=== PATIENT | female | born 1965 | race Caucasian/White ===

== ENCOUNTER 2023-02-20 14:03 | Observation (INO) | payer OTHER, MEDICAID, SELFPAY ==
[2023-02-20] VITALS (19 sets, daily range): BP systolic 118–138; BP diastolic 74–92; PULSE 69–88; RESP 12–27; TEMP 36.8–36.9; O2SAT 93–100; BMI 24.3
--- NOTE | 2023-02-20 14:21 | DI.RAD.S_ITS ---
PROCEDURE: XR CHEST 1V INDICATIONS: Shortness of breath TECHNIQUE: One view of the chest was acquired. COMPARISON: None. FINDINGS: Surgical changes and devices: None. Lungs and pleura: Questionable slight asymmetric hazy opacity in the right base. Mediastinum: Mediastinal contours appear normal. Heart size is normal. Bones and chest wall: No suspicious bony lesions. Overlying soft tissues appear unremarkable. IMPRESSION: Questionable asymmetric hazy right basilar opacity. This could represent dependent change, focal edema or potentially developing airspace disease such as atelectasis versus pneumonia. Dictated by: Lilian Zavala M.D. on 02/20/2023 at 15:27 Approved by: Lilian Zavala M.D. on 02/20/2023 at 15:28
[2023-02-20 14:48] LABS: Add Manual Diff / Slide Review NO; Basophils Absolute Auto 100 /uL (0-100); Basophils Percent Auto 0.7 % (0-2); Eosinophils Absolute Auto 300 /uL (0-450); Eosinophils Percent Auto 2.8 % (2-4); Hematocrit 40.3 % (36-46); Hemoglobin 13.9 g/dL (12.0-16.0); Lymphocytes Absolute Auto 1400 /uL (1100-4500); Mean Corpuscular HGB Conc 34.4 % (30-36); Mean Corpuscular Hemoglobin 29.9 PG (26-34); Mean Corpuscular Volume 86.8 fL (80-100); Monocytes Absolute Auto 900 /uL (0-900); Monocytes Percent Auto 8.8 % (3-14); Neutrophils Absolute Auto 7600 /uL (1500-7000); Neutrophils Percent Auto 73.7 % (50-75); Platelet Count 361 X10^3/uL (150-400); Red Blood Cell Count 4.64 X10^6/uL (4.0-5.2); Red Cell Distribution Width 12.6 % (11.6-14.8); White Blood Cell Count 10.3 X10^3/uL (4.5-11.0)
[2023-02-20 14:51] LABS: INR 1.2 (0.9-1.3); Prothrombin Time 13.4 SECONDS (10.1-12.7)
[2023-02-20 14:55] LABS: COVID19 -Nasal RAPID Negative (Negative); Lactate (Lactic Acid) 0.9 mmol/L (0.7-2.1)
[2023-02-20 14:56] LABS: Alanine Aminotransferase 36 IU/L (<35); Albumin 3.9 g/dL (3.5-5.0); Alkaline Phosphatase 94 U/L (38-126); Aspartate Aminotransferase 35 IU/L (14-36); BUN Creatinine Ratio 27.8 (6-22); Bilirubin Total 0.3 mg/dL (0.2-1.3); Blood Urea Nitrogen 15 mg/dL (7-17); Calcium 9.2 mg/dL (8.4-10.2); Carbon Dioxide 30 mmol/L (22-32); Chloride 101 mmol/L (98-107); Estimated Glomerular Filt Rate > 60 mL/min (>60); Globulin 3.9 g/dL (1.7-4.1); Glucose 95 mg/dL (80-110); HEMOLYSIS < 15 (0-50); Potassium 4.1 mmol/L (3.4-5.1); Sodium 137 mmol/L (137-145); Total Protein 7.8 g/dL (6.3-8.2)
--- NOTE | 2023-02-20 14:57 | PC.NURSE ---
Pt reports recent meth use via smoking. Has taken in the last week but not the last two days.
[2023-02-20 15:08] LABS: NT-proBNP (BNP-Adult 18+) 101 pg/mL (<125); Troponin I < 0.012 ng/mL (0.01-0.034)
--- NOTE | 2023-02-20 15:36 | ED.GENADULT ---
HPI - General Adult General Chief complaint: Upper Respiratory Symptoms Stated complaint: Sick, No bowel movement in a while Time Seen by Provider: 02/20/23 14:45 Source: patient Mode of arrival: Ambulatory History of Present Illness HPI narrative: 58-year-old female former smoker and daily smoker of methamphetamines presents with family in the chief complaint of ongoing if not worsening upper respiratory symptoms over the past 2 weeks or so. She complains of fever, chills and fatigue as well as cough and generally feeling unwell. She denies any headache or blurred vision nor any runny nose, sore throat nor nausea or vomiting. She had been seen and evaluated at a local urgent care and started on doxycycline about 1 week ago and presents today stating that despite taking antibiotics she is worse. She denies any recent travel, history of blood clots or known cancer. She denies exposure to other ill persons or any history of the same. Related Data Allergies Allergy/AdvReac Type Severity Reaction Status Date / Time sulfamethoxazole Allergy Rash Verified 02/20/23 14:20 [From Bactrim] trimethoprim [From Bactrim] Allergy Rash Verified 02/20/23 14:20 Review of Systems Review of Systems Narrative: GENERAL: See HPI HEENT: See HPI RESPIRATORY: See HPI CARDIOVASCULAR: Denies chest pain, palpitations, orthopnea, edema, GASTROINTESTINAL: Denies nausea, vomiting, abdominal pain, diarrhea, constipation, melena. : Denies dysuria, frequency, incontinence, hematuria, urinary retention. MUSCULOSKELETAL: denies weakness, joint pain, or bony pain SKIN: Denies rash, skin lesions, or other NEUROLOGIC: Denies weakness, headache, numbness, change in speech, confusion, seizures, incoordination. PSYCHIATRIC: No concerning psychosocial issues. 12 point review of systems is negative except for those stated above Patient History Social History Smoking Status: Current every day smoker Smoking Status: Current every day smoker tobacco type: cigarettes alcohol intake frequency: 0-2 drinks per day Substance Use Type: does not use Exam Narrative Exam Narrative: GENERAL: [58] year old patient appears stated age. Well-developed patient, in mild distress. Clearly feeling unwell, frequent dry cough HEAD: Atraumatic. Normocephalic. EYES: Pupils equal round and reactive. Extraocular motions intact. No scleral icterus. No injection or drainage. ENT: Nose without bleeding, purulent drainage. Throat without erythema, tonsillar hypertrophy or exudate. Airway patent. NECK: Trachea midline. Non tender CARDIOVASCULAR: Regular rate and rhythm without murmurs, gallops, or rubs. RESPIRATORY: Harsh sounding cough, decreased breath sounds bilaterally with prolonged expiratory phase, faint crackles in bilateral bases GASTROINTESTINAL: Abdomen soft, non-tender, nondistended. EXTREMITIES: No edema or joint tenderness. BACK: Nontender without deformity or crepitance. No flank tenderness. NEURO: AOx3. SKIN: No rash or erythema of visible areas Initial Vital Signs Initial Vital Signs: Vital Signs Temperature 98.4 F 02/20/23 14:12 Respiratory Rate 18 02/20/23 14:12 Blood Pressure 126/92 H 02/20/23 14:12 Pulse Oximetry 98 02/20/23 14:12 Oxygen Delivery Method Room Air 02/20/23 14:12 Course Orders Ordered: ED Orders 02/20/23 14:21 XR chest 1V Stat EKG-12 Lead Stat Measure peak expiratory flow ONCE RT Consult Eval and Treat NOW 02/20/23 14:30 COVID19 -Nasal RAPID Stat Complete Blood Count AUTO DIFF Stat Comprehensive Metabolic Panel Stat Lactate (Lactic Acid) Stat NT-proBNP (BNP-Adult 18+) Stat Prothrombin Time INR Stat Troponin I Stat 02/20/23 15:37 CT chest abd pel w con Stat 02/20/23 18:30 Sputum Culture Stat 02/20/23 19:20 Blood Culture Stat Discontinued Medications Cefepime HCl 2 gm/ Sodium (Chloride) 100 mls @ 200 mls/hr IV NOW ONE Stop: 02/20/23 18:53 Last Infusion: 02/20/23 20:24 Dose: 0 mls/hr Documented By: COUNTS INCLUDE 234 BEDS AT [facility] Admin: 02/20/23 19:31 Dose: 200 mls/hr Documented By: AMU Vancomycin HCl (Vancomycin) 1,250 mg in 250 mls @ 250 mls/hr IV NOW ONE Stop: 02/20/23 19:51 Last Infusion: 02/20/23 20:43 Dose: 0 mls/hr Documented By: Admin: 02/20/23 19:31 Dose: 250 mls/hr Documented By: TAMYU Azithromycin 500 mg/ Dextrose 250 mls @ 250 mls/hr IV NOW ONE Stop: 02/20/23 18:53 Last Admin: 02/20/23 20:21 Dose: 250 mls/hr Documented By: COUNTS INCLUDE 234 BEDS AT THE [facility] Ketorolac Tromethamine (Ketorolac 30 Mg/Ml Vial) 15 mg IV NOW ONE Stop: 02/20/23 19:27 Last Admin: 02/20/23 19:31 Dose: 15 mg Documented By: AMU Consultations Consultation #1: Initially discussed with Dr. Brady hospitalist and we sure the opinion that discussion with infectious disease is appropriate given atypical presentation on imaging and failed outpatient Consultation #2: Discussed with ID (Sari) at [facility]. After lengthy discussion of patient's history and physical exam, imaging and risk factors he recommends patient be admitted, cultured, sputum cultures, fungal cultures, broad-spectrum and atypical antibiotic coverage, but appropriate for our facility and no indication for transfer at this point Vital Signs Vital signs: Vital Signs - 8 hr 02/20/23 14:12 02/20/23 14:57 02/20/23 15:00 Temperature 98.4 F Pulse Rate 75 77 Respiratory Rate 18 20 12 Blood Pressure 126/92 H 128/78 121/82 Pulse Oximetry 98 100 98 Oxygen Delivery Method Room Air Room Air Room Air 02/20/23 15:30 02/20/23 16:00 02/20/23 16:30 Temperature Pulse Rate 71 71 71 Respiratory Rate 18 19 16 Blood Pressure 123/74 126/80 132/81 Pulse Oximetry 100 98 98 Oxygen Delivery Method Room Air Room Air Room Air 02/20/23 18:27 02/20/23 18:30 02/20/23 19:00 Temperature Pulse Rate 76 75 78 Respiratory Rate 20 18 16 Blood Pressure 138/77 129/79 118/82 Pulse Oximetry 94 95 95 Oxygen Delivery Method Room Air Room Air Room Air 02/20/23 19:25 Temperature 98.3 F Pulse Rate Respiratory Rate Blood Pressure Pulse Oximetry Oxygen Delivery Method Medical Decision Making Lab Data 02/20/23 14:30 02/20/23 14:30 Labs: Lab Results 02/20/23 02/20/23 02/20/23 Range/Units 14:30 14:30 14:30 WBC 10.3 (4.5-11.0) X10^3/uL RBC 4.64 (4.0-5.2) X10^6/uL Hgb 13.9 (12.0-16.0) g/dL Hct 40.3 (36-46) % MCV 86.8 (80-100) fL MCH 29.9 (26-34) PG MCHC 34.4 (30-36) % RDW 12.6 (11.6-14.8) % Plt Count 361 (150-400) X10^3/uL Neut % (Auto) 73.7 (50-75) % Lymph % (Auto) 14.0 L (25-40) % [place] % (Auto) 8.8 (3-14) % Eos % (Auto) 2.8 (2-4) % Baso % (Auto) 0.7 (0-2) % Neut # (Auto) 7600 H (2191-1033) /uL Lymph # (Auto) 1400 (8513-5433) /uL [place] # (Auto) 900 (0-900) /uL Eos # (Auto) 300 (0-450) /uL Baso # (Auto) 100 (0-100) /uL PT 13.4 H (10.1-12.7) SECONDS INR 1.2 (0.9-1.3) Sodium 137 (137-145) mmol/L Potassium 4.1 (3.4-5.1) mmol/L Chloride 101 (98-107) mmol/L Carbon Dioxide 30 (22-32) mmol/L BUN 15 (7-17) mg/dL Creatinine 0.54 (0.52-1.04) mg/dL Estimated GFR > 60 (>60) mL/min BUN/Creatinine Ratio 27.8 H (6-22) Glucose 95 (80-110) mg/dL Lactate (0.7-2.1) mmol/L Calcium 9.2 (8.4-10.2) mg/dL Total Bilirubin 0.3 (0.2-1.3) mg/dL AST 35 (14-36) IU/L ALT 36 H (<35) IU/L Alkaline Phosphatase 94 (38-126) U/L Troponin I < 0.012 (0.01-0.034) ng/mL NT-Pro-B Natriuret Pep 101 (<125) pg/mL Total Protein 7.8 (6.3-8.2) g/dL Albumin 3.9 (3.5-5.0) g/dL Globulin 3.9 (1.7-4.1) g/dL Albumin/Globulin Ratio 1.0 (1.0-2.8) SARS-CoV-2 (PCR) (Negative) 02/20/23 02/20/23 Range/Units 14:30 14:30 WBC (4.5-11.0) X10^3/uL RBC (4.0-5.2) X10^6/uL Hgb (12.0-16.0) g/dL Hct (36-46) % MCV (80-100) fL MCH (26-34) PG MCHC (30-36) % RDW (11.6-14.8) % Plt Count (150-400) X10^3/uL Neut % (Auto) (50-75) % Lymph % (Auto) (25-40) % [place] % (Auto) (3-14) % Eos % (Auto) (2-4) % Baso % (Auto) (0-2) % Neut # (Auto) (7675-2556) /uL Lymph # (Auto) (3281-2333) /uL [place] # (Auto) (0-900) /uL Eos # (Auto) (0-450) /uL Baso # (Auto) (0-100) /uL PT (10.1-12.7) SECONDS INR (0.9-1.3) Sodium (137-145) mmol/L Potassium (3.4-5.1) mmol/L Chloride (98-107) mmol/L Carbon Dioxide (22-32) mmol/L BUN (7-17) mg/dL Creatinine (0.52-1.04) mg/dL Estimated GFR (>60) mL/min BUN/Creatinine Ratio (6-22) Glucose (80-110) mg/dL Lactate 0.9 (0.7-2.1) mmol/L Calcium (8.4-10.2) mg/dL Total Bilirubin (0.2-1.3) mg/dL AST (14-36) IU/L ALT (<35) IU/L Alkaline Phosphatase (38-126) U/L Troponin I (0.01-0.034) ng/mL NT-Pro-B Natriuret Pep (<125) pg/mL Total Protein (6.3-8.2) g/dL Albumin (3.5-5.0) g/dL Globulin (1.7-4.1) g/dL Albumin/Globulin Ratio (1.0-2.8) SARS-CoV-2 (PCR) Negative (Negative) Critical Care Time Critical Care Time Critical Care Time: Yes Total Critical Care Time: 35 Attestation: The high probability of a clinically significant, sudden or life threatening deterioration of the [Resp] system(s) required my full and direct attention, intervention and personal management. The aggregate critical care time was [35] minutes. This time is in addition to time spent performing reported procedures but includes the following: [x] Data Review and interpretation [x] Patient assessment and monitoring of vital signs [x] Documentation [x] Medication orders and management Discharge Plan Departure Patient Disposition: Admitted as Observation Clinical Impression: Pneumonia
--- NOTE | 2023-02-20 15:37 | DI.CT.S_ITS ---
PROCEDURE: CT CHEST ABD PEL W CON INDICATIONS: pneumonia worsening, abdominal pain, change in BMs TECHNIQUE: After the administration of intravenous contrast, axial sections acquired from the supraclavicular neck to the pubic symphysis. Coronal and sagittal reformats were performed. For radiation dose reduction, the following was used: automated exposure control, adjustment of mA and/or kV according to patient size. COMPARISON: [facility], CT, CT KUB, 06/13/2021, 22:11. FINDINGS: Image quality: Excellent. CHEST: Lower Neck: No enlarged lymph nodes. Thyroid: Within normal limits. Axillae: No enlarged lymph nodes. Chest Wall: Unremarkable. Lungs and Airways: There are scattered clusters of nodular opacities identified within the lungs most notable in the bases as well as right upper lobe. Heart: Heart size is normal. No pericardial effusion. Thoracic Vessels: The aorta and pulmonary arteries demonstrate normal size. Mediastinum and Becky: No enlarged lymph nodes. Esophagus: No wall thickening. No hiatal hernia. ABDOMEN: Liver: Mild steatosis. Gallbladder: Unremarkable. Biliary ducts: Unremarkable. Pancreas: Unremarkable. Spleen: Unremarkable. Adrenal Glands: Unremarkable. Kidneys and Ureters: 3 mm nonobstructing left renal calculus. Stomach and Bowel: Stomach, small bowel loops, and colon are unremarkable. Appendix is normal. Mild scattered stool. Diverticular present without inflammatory change. Peritoneum: No abnormal intraperitoneal fluid. No free air. Ventral Wall: Trace fat containing ventral hernia. Abdominal Nodes: No retroperitoneal or mesenteric adenopathy by size criteria. Vessels: Aorta and inferior vena cava are normal in size. PELVIS: Pelvic Organs: Unremarkable. Bladder: Unremarkable. Pelvic Nodes: No enlarged lymph nodes. Miscellaneous: No inguinal hernias are seen. Bones: Sclerosis is present the posterior left acetabulum unchanged and likely bone island. IMPRESSION: 1. Bilateral nodular opacities within the lungs most suggestive of infection or inflammation. Recommend correlation to potential etiology such as fungal or mycobacterial. Follow-up imaging is recommended after appropriate therapy to document resolution. 2. Diverticulosis. 3. Nonobstructing left renal calculus. Dictated by: Lilian Zavala M.D. on 02/20/2023 at 16:03 Approved by: Lilian Zavala M.D. on 02/20/2023 at 16:06
[2023-02-20] MEDS: CEFEPIME 2 GM in SODIUM CHLORIDE 0.9% 100 ML IV (19:31)
[2023-02-20] MEDS: KETOROLAC 30 MG/ML VIAL 15 MG IV (19:31)
[2023-02-20] MEDS: VANCOMYCIN 1,250 MG/250 ML PIGGYBACK 250 MG IV (19:31)
[2023-02-20] MEDS: AZITHROMYCIN 500 MG in DEXTROSE 5% IN WATER 250 ML 250 MG IV (20:21)
--- NOTE | 2023-02-20 22:05 | P.HP_ITS ---
History of Present Illness History of Present Illness Date Patient Seen: 02/20/23 Time Patient Seen: 21:00 Chief complaint: Sick, No bowel movement in a while Narrative: Ms. Gonzalez is a 58W smokes cigarettes and meth daily who prseents to the hospital feeling ill for the last two weeks. She has subjective fevers, chills, cough, and malaise. She has some phlegm production. She has no chest pain. No sick contacts. She was prescribed doxycycline two days for a pneumonia and has taken she thinks four total doses. She does not feel better. She has continued to smoke tobacco and meth. In the ED workup was done, vitals notable for afebrile, respiratory rate teens, blood pressure 120s/90s, sats 98% on room air. Labs reviewed by me and notable for WBC 10.3, hgb 13.9, plts 361. Na 137, k 4.1, creatinine 0.54. Trop negative. COVID negative. Chest xray reviewed by me and notable for right opacity. CT chest reviewed by me and notable for bilateral lung opacities. She was ordered for antibiotics and admitted for further treatment. [facility] Social History Smoking Status: Current every day smoker Meds Home Medications and Allergies Allergies Allergy/AdvReac Type Severity Reaction Status Date / Time sulfamethoxazole Allergy Rash Verified 02/20/23 14:20 [From Bactrim] trimethoprim [From Bactrim] Allergy Rash Verified 02/20/23 14:20 Review of Systems Review of Systems Narrative: 14 systems reviewed and negative aside from what is noted in HPI Exam Vital Signs (past 8 hours): - 02/20/23 14:12 02/20/23 14:57 02/20/23 15:00 Temperature 98.4 F Pulse Rate 75 77 Respiratory Rate 18 20 12 Blood Pressure 126/92 H 128/78 121/82 Pulse Oximetry 98 100 98 Oxygen Delivery Method Room Air Room Air Room Air 02/20/23 15:30 02/20/23 16:00 02/20/23 16:30 Temperature Pulse Rate 71 71 71 Respiratory Rate 18 19 16 Blood Pressure 123/74 126/80 132/81 Pulse Oximetry 100 98 98 Oxygen Delivery Method Room Air Room Air Room Air 02/20/23 18:27 02/20/23 18:30 02/20/23 19:00 Temperature Pulse Rate 76 75 78 Respiratory Rate 20 18 16 Blood Pressure 138/77 129/79 118/82 Pulse Oximetry 94 95 95 Oxygen Delivery Method Room Air Room Air Room Air 02/20/23 19:25 02/20/23 19:30 02/20/23 19:30 Temperature 98.3 F Pulse Rate 74 Respiratory Rate 16 Blood Pressure 136/85 Pulse Oximetry 96 Oxygen Delivery Method 02/20/23 20:00 02/20/23 20:00 02/20/23 20:30 Temperature Pulse Rate 69 84 Respiratory Rate 20 20 Blood Pressure 135/80 Pulse Oximetry 96 Oxygen Delivery Method 02/20/23 21:00 Temperature Pulse Rate 88 Respiratory Rate Blood Pressure Pulse Oximetry 95 Oxygen Delivery Method Oxygen Delivery Method Room Air Narrative Exam Narrative: GEN: no acute distress HEENT: moist mucous membranes, PERRL NECK: trachea midline, no JVD PULM: clear bilaterally, no wheezes, rhonchi, rales CV: regular rate and rhythm, no murmurs ABD: soft, nontender, nondistended, no organomegaly EXT: warm and well perfused with no edema NEURO: awake, alert, oriented, no focal deficits Objective Labs 02/20/23 14:30 02/20/23 14:30 Labs: Laboratory Results - last 24 hr 02/20/23 02/20/23 02/20/23 14:30 14:30 14:30 WBC 10.3 RBC 4.64 Hgb 13.9 Hct 40.3 MCV 86.8 MCH 29.9 MCHC 34.4 RDW 12.6 Plt Count 361 Neut % (Auto) 73.7 Lymph % (Auto) 14.0 L [place] % (Auto) 8.8 Eos % (Auto) 2.8 Baso % (Auto) 0.7 Neut # (Auto) 7600 H Lymph # (Auto) 1400 [place] # (Auto) 900 Eos # (Auto) 300 Baso # (Auto) 100 PT 13.4 H INR 1.2 Sodium 137 Potassium 4.1 Chloride 101 Carbon Dioxide 30 BUN 15 Creatinine 0.54 Estimated GFR > 60 BUN/Creatinine Ratio 27.8 H Glucose 95 Lactate Calcium 9.2 Total Bilirubin 0.3 AST 35 ALT 36 H Alkaline Phosphatase 94 Troponin I < 0.012 NT-Pro-B Natriuret Pep 101 Total Protein 7.8 Albumin 3.9 Globulin 3.9 Albumin/Globulin Ratio 1.0 SARS-CoV-2 (PCR) 02/20/23 02/20/23 14:30 14:30 WBC RBC Hgb Hct MCV MCH MCHC RDW Plt Count Neut % (Auto) Lymph % (Auto) [place] % (Auto) Eos % (Auto) Baso % (Auto) Neut # (Auto) Lymph # (Auto) [place] # (Auto) Eos # (Auto) Baso # (Auto) PT INR Sodium Potassium Chloride Carbon Dioxide BUN Creatinine Estimated GFR BUN/Creatinine Ratio Glucose Lactate 0.9 Calcium Total Bilirubin AST ALT Alkaline Phosphatase Troponin I NT-Pro-B Natriuret Pep Total Protein Albumin Globulin Albumin/Globulin Ratio SARS-CoV-2 (PCR) Negative Assessment & Plan Assessment & Plan narrative: 1. Cough, possible pneumonia -she has symptoms consistent with pneumonia with cough and subjective fevers -chest xray showed bilateral consolidation -she has been taking doxycycline with no improvement -etiology is possibly bacterial, viral, or fungal pneumonia -however with afebrile, normal wbc, also possibly not infection -check procalcitonin, if negative would have higher suspicion for meth induced lung injury -check sputum culture 2. Active meth smoker -discussed cessation 3. Active tobacco smoker -discussed cessation I have discussed plan and obtained history from patient and family at bedside. I have discussed plan of care with ED physician and bedside nurse. I have reviewed labs, chest xray, CT chest. CODE: Full Proxy: Noelle Gonzalez, daughter Quality [facility] - Meds 'Current medications' to include all prescriptions, [id number] products, herbals, cannabis/cannabidiol products, and vitamin/mineral/dietary (nutritional) supplements. I have utilized all available resources to obtain, update, or review the patient?s current medications. [If Yes, STOP here]: Yes
[2023-02-20 22:42] LABS: Procalcitonin 0.04 ng/mL (<0.5)
--- NOTE | 2023-02-20 22:48 | PC.NURSE ---
Lab has duplicate sputum cx order. Second one cancelled
[2023-02-21] VITALS (29 sets, daily range): BP systolic 108–164; BP diastolic 68–104; PULSE 64–89; RESP 13–23; TEMP 36.7–37; O2SAT 91–99; BMI 24.3
[2023-02-21 06:19] LABS: Add Manual Diff / Slide Review NO; Basophils Absolute Auto 100 /uL (0-100); Basophils Percent Auto 0.9 % (0-2); Eosinophils Absolute Auto 400 /uL (0-450); Eosinophils Percent Auto 5.2 % (2-4); Hematocrit 37.2 % (36-46); Hemoglobin 12.8 g/dL (12.0-16.0); Lymphocytes Absolute Auto 1400 /uL (1100-4500); Lymphocytes Percent Auto 20.3 % (25-40); Mean Corpuscular HGB Conc 34.3 % (30-36); Mean Corpuscular Hemoglobin 29.7 PG (26-34); Mean Corpuscular Volume 86.5 fL (80-100); Monocytes Absolute Auto 600 /uL (0-900); Monocytes Percent Auto 8.7 % (3-14); Neutrophils Absolute Auto 4500 /uL (1500-7000); Neutrophils Percent Auto 64.9 % (50-75); Platelet Count 333 X10^3/uL (150-400); Red Cell Distribution Width 12.6 % (11.6-14.8)
[2023-02-21 06:38] LABS: Blood Urea Nitrogen 16 mg/dL (7-17); Calcium 8.6 mg/dL (8.4-10.2); Carbon Dioxide 28 mmol/L (22-32); Chloride 103 mmol/L (98-107); Estimated Glomerular Filt Rate > 60 mL/min (>60); Glucose 85 mg/dL (80-110); HEMOLYSIS < 15 (0-50); Potassium 3.7 mmol/L (3.4-5.1); Sodium 137 mmol/L (137-145)
[2023-02-21] MEDS: VANCOMYCIN 1,000 MG/200 ML PIGGYBACK 150 MG IV (08:41)
[2023-02-21] MEDS: CEFEPIME 2 GM in SODIUM CHLORIDE 0.9% 100 ML IV (10:24)
[2023-02-21] MEDS: ENOXAPARIN 40 MG/0.4 ML SYRINGE SUBCUT (10:24)
--- NOTE | 2023-02-21 11:57 | PC.NURSE ---
Day shift: In room from ED at approx 1157. Family member (Daughter) in room as well. A&Ox4. Calm and cooperative with care. Oriented to room and call light. VS WNL. RA 99%. Call light in reach. Steady on feet.
--- NOTE | 2023-02-21 14:39 | PC.NURSE ---
Day shift: Paperwork signed and all questions answered. Pt has all personal belongings. scripts sent electronic to Pt's pharmacy. Pt's Daughter in room for teachings. Left unit at approx 1450. Pt wanted to ambulate to the car.
[2023-02-21 17:17] LABS: MRSA (Nasal) PCR Not Detected (Not Detect)
--- NOTE | 2023-02-21 18:12 | P.DS_ITS ---
History of Present Illness History of Present Illness Date Patient Seen: 02/20/23 Time Patient Seen: 21:00 Chief complaint: Sick, No bowel movement in a while Narrative: Ms. Gonzalez is a 58W smokes cigarettes and meth daily who prseents to the hospital feeling ill for the last two weeks. She has subjective fevers, chills, cough, and malaise. She has some phlegm production. She has no chest pain. No sick contacts. She was prescribed doxycycline two days for a pneumonia and has taken she thinks four total doses. She does not feel better. She has continued to smoke tobacco and meth. In the ED workup was done, vitals notable for afebrile, respiratory rate teens, blood pressure 120s/90s, sats 98% on room air. Labs reviewed by me and notable for WBC 10.3, hgb 13.9, plts 361. Na 137, k 4.1, creatinine 0.54. Trop negative. COVID negative. Chest xray reviewed by me and notable for right opacity. CT chest reviewed by me and notable for bilateral lung opacities. She was ordered for antibiotics and admitted for further treatment. Discharge Providers Provider Date of admission: 02/21/23 00:34 Discharge Date: 02/21/23 Discharge provider: Agusto Brady DO Summary Hospital Course Discharge Diagnosis: 1. Cough, possible pneumonia -she has symptoms consistent with pneumonia with cough and subjective fevers -chest xray showed bilateral consolidation -she has been taking doxycycline with no improvement -etiology is possibly bacterial, viral, or fungal pneumonia -however with afebrile, normal wbc, also possibly not infection -check procalcitonin, if negative would have higher suspicion for meth induced lung injury, procal negative -check sputum culture 2. Active meth smoker -discussed cessation 3. Active tobacco smoker -discussed cessation Hospital Course: Admitted for cough and found to have bilateral nodular opacities on CTA chest suspicious for pneumonia. Placed on broad spectrum abx and improved and wanted to go home the next day before sputum and blood cultures resulted as she felt much better. She will be called with the results if they are abnormal. Procal negative suggesting more likely pneumonitis from smoking meth over true pneumonia. Placed on 5 days of po levaquin and will f/u with PCP. Given script per daughter's request for intranasal narcan. Time Spent with Patient Time spent: Greater than 30 minutes Exam Vital Signs (past 8 hours): - 02/21/23 10:30 02/21/23 11:00 02/21/23 11:00 Temperature Pulse Rate 76 74 Respiratory Rate 13 20 Blood Pressure 119/70 Pulse Oximetry 96 95 Oxygen Delivery Method Oxygen Flow Rate 02/21/23 11:30 02/21/23 12:00 02/21/23 12:45 Temperature 98.0 F Pulse Rate 69 72 Respiratory Rate 22 18 Blood Pressure 135/74 Pulse Oximetry 95 97 Oxygen Delivery Method Room Air Oxygen Flow Rate 0 Oxygen Delivery Method Room Air Oxygen Flow Rate 0 Narrative Exam Narrative: GEN: no acute distress HEENT: moist mucous membranes, PERRL NECK: trachea midline, no JVD PULM: clear bilaterally, no wheezes, rhonchi, rales CV: regular rate and rhythm, no murmurs ABD: soft, nontender, nondistended, no organomegaly EXT: warm and well perfused with no edema NEURO: awake, alert, oriented, no focal deficits Objective Labs 02/21/23 06:00 02/21/23 06:00 Labs: Laboratory Results - last 24 hr 02/20/23 02/21/23 02/21/23 19:20 06:00 06:00 WBC 7.0 RBC 4.30 Hgb 12.8 Hct 37.2 MCV 86.5 MCH 29.7 MCHC 34.3 RDW 12.6 Plt Count 333 Neut % (Auto) 64.9 Lymph % (Auto) 20.3 L [place] % (Auto) 8.7 Eos % (Auto) 5.2 H Baso % (Auto) 0.9 Neut # (Auto) 4500 Lymph # (Auto) 1400 [place] # (Auto) 600 Eos # (Auto) 400 Baso # (Auto) 100 Sodium 137 Potassium 3.7 Chloride 103 Carbon Dioxide 28 BUN 16 Creatinine 0.47 L Estimated GFR > 60 BUN/Creatinine Ratio 34.0 H Glucose 85 Calcium 8.6 Procalcitonin 0.04 Nasal Screen MRSA (PCR) 02/21/23 13:55 WBC RBC Hgb Hct MCV MCH MCHC RDW Plt Count Neut % (Auto) Lymph % (Auto) [place] % (Auto) Eos % (Auto) Baso % (Auto) Neut # (Auto) Lymph # (Auto) [place] # (Auto) Eos # (Auto) Baso # (Auto) Sodium Potassium Chloride Carbon Dioxide BUN Creatinine Estimated GFR BUN/Creatinine Ratio Glucose Calcium Procalcitonin Nasal Screen MRSA (PCR) Not detected [facility] Social History Smoking Status: Current every day smoker alcohol intake: current Discharge Plan Discharge Plan Patient Disposition: Home Provider Discharge Comment: You were admitted for a pneumonia. You received IV antibiotics while in the hospital and your breathing improved. You will now need to finish a course of oral antibiotics at home. I've also sent narcan spray to have on hand. Discharge orders & Medications Prescriptions: New levofloxacin 750 mg tablet 750 mg PO DAILY 5 Days Qty: 5 0RF naloxone [Narcan] 4 mg/actuation spray,non-aerosol 4 mg intranasal Q2M PRN (Reason: opioid overdose) Qty: 2 0RF Rx Instructions: spray 1 dose into ONE nostril; alternate nostrils w each dose until help arrives Visit Report/Discharge Packet Instructions: DI for Pneumonia -- Adult, Levofloxacin, Naloxone Nasal [place] Stand Alone Forms: Patient Portal/API, Stroke Signs & Symptoms Discharge Data Attending Provider: Jeb Tirado Admit Date/Time: 02/21/23 00:34 Discharges patient from system. Discharge Date/Time: 02/21/23 14:48 Quality VTE Deep Vein Thrombosis/Pulmonary Embolism Present on Admission: No
== END 2023-02-21 14:48 | disposition home or self-care (01) ==
LOC: ED 21:15 → AC 02-21 00:35
PROVIDERS: Admitting Provider Internal Medicine; Emergency Provider Emergency Medicine; Visit Provider Internal Medicine
DX: R50.9 Fever, unspecified (principal); R05.9 Cough, unspecified; F17.210 Nicotine dependence, cigarettes, uncomplicated; F15.20 Other stimulant dependence, uncomplicated; Z20.822 Contact with and (suspected) exposure to COVID-19
CPT/HCPCS: 36415; 71045; 71260; 74177; 80048; 80053; 83605; 83880; 84145; 84484; 85025; 85610; 87040; 87070; 87205; 87635; 87797; 93005; 93010; 96365; 96366; 96367; 96368; 96372; 96375; 99284; 99285; C9803; G0378; J0692; J1650; J1885; Q9967

== ENCOUNTER → 2024-01-16 15:15 | Outpatient (CLI) | payer OTHER, MEDICAID, SELFPAY ==
[2023-02-21 13:04] VITALS: BMI 24.3
--- NOTE | 2024-01-16 15:52 | DI.RAD.S_ITS ---
PROCEDURE: XR CHEST 2V INDICATIONS: Cough TECHNIQUE: 2 views of the chest were acquired. COMPARISON: [facility], CR, XR CHEST 1V, 02/20/2023, 14:42. FINDINGS: Surgical changes and devices: None. Lungs and pleura: Airspace opacity in right infrahilar region is seen. Left lung is clear. No pleural effusions or pneumothorax. Mediastinum: Mediastinal contours are normal. Heart size is normal. Bones and chest wall: No suspicious bony abnormalities. Soft tissues appear unremarkable. IMPRESSION: Finding is suggestive of developing right lower lobe infiltrate. No pleural effusion or pneumothorax. Dictated by: Kimo Myers M.D. on 01/16/2024 at 17:26 Approved by: Kimo Myers M.D. on 01/16/2024 at 17:26
[2024-01-16 18:43] LABS: COVID-19 CEPHEID 4-PLEX PCR Negative (Negative); Influenza A - CEPHEID Flu A NEGATIVE (NEGATIVE); Influenza B - CEPHEID Flu B NEGATIVE (NEGATIVE); Respiratory Syncytial Virus Negative (Negative)
== END ==
PROVIDERS: Referring Provider Nurse Practitioner Family; Visit Provider Nurse Practitioner Family
DX: R05.9 Cough, unspecified (principal)
CPT/HCPCS: 0241U; 71046

== ENCOUNTER 2024-07-15 18:28 | Emergency (ER) | payer OTHER, MEDICAID, SELFPAY ==
[2023-02-21 13:04] VITALS: BMI 24.3
[2024-07-15 18:37] VITALS: BP 153/90; PULSE 73; RESP 16; TEMP 36.8; O2SAT 97; BMI 22.4
--- NOTE | 2024-07-15 18:48 | EKG_ITS ---
[address] [address] Test Date: 2024-07-15 Pat Name: Aarti Gonzalez Department: [facility] Room: Gender: Female Window Maker: HEAVENLY : 1965 Requested By: Order Number: [id number] Reading MD: Eugene Barnett Measurements Intervals [place] Rate: 74 P: 83 MD: 200 QRS: 24 QRSD: 82 T: 58 QT: 404 QTc: 448 Interpretive Statements Normal sinus rhythm Electronically Signed On 07-15-2024 19:52:48 PDT by Eugene Barnett
--- NOTE | 2024-07-15 18:48 | DI.RAD.S_ITS ---
PROCEDURE: XR CHEST 1V INDICATIONS: chest pain TECHNIQUE: One view of the chest was acquired. COMPARISON: [facility], CR, XR CHEST 2V, 01/16/2024, 15:52. FINDINGS: Surgical changes and devices: None. Lungs and pleura: Lungs are clear. No pleural effusions or pneumothorax. Mediastinum: Mediastinal contours appear normal. Heart size is normal. Bones and chest wall: No suspicious bony lesions. Overlying soft tissues appear unremarkable. IMPRESSION: No acute cardiopulmonary abnormality is seen. Approved by: Federica Rivas M.D.,Ph.D. on 07/15/2024 at 20:21
[2024-07-15 19:19] LABS: Add Manual Diff / Slide Review NO; Basophils Absolute Auto 100 /uL (0-100); Basophils Percent Auto 1.4 % (0-2); Eosinophils Absolute Auto 300 /uL (0-450); Hematocrit 39.9 % (36-46); Hemoglobin 13.4 g/dL (12.0-16.0); Lymphocytes Absolute Auto 1500 /uL (1100-4500); Lymphocytes Percent Auto 22.9 % (25-40); Mean Corpuscular HGB Conc 33.7 % (30-36); Mean Corpuscular Hemoglobin 30.1 PG (26-34); Mean Corpuscular Volume 89.4 fL (80-100); Monocytes Absolute Auto 400 /uL (0-900); Monocytes Percent Auto 6.2 % (3-14); Neutrophils Absolute Auto 4400 /uL (1500-7000); Neutrophils Percent Auto 65.5 % (50-75); Platelet Count 210 X10^3/uL (150-400); Red Blood Cell Count 4.46 X10^6/uL (4.0-5.2); Red Cell Distribution Width 13.2 % (11.6-14.8); White Blood Cell Count 6.7 X10^3/uL (4.5-11.0)
[2024-07-15 19:25] LABS: Prothrombin Time 11.5 SECONDS (9.4-12.5)
[2024-07-15 19:28] LABS: PTT Partial Thromboplastin Tim 36 SECONDS (25.1-36.5)
[2024-07-15 19:29] LABS: Alanine Aminotransferase 19 IU/L (<35); Albumin 4.2 g/dL (3.5-5.0); Albumin Globulin Ratio 1.4 (1.0-2.8); Alkaline Phosphatase 80 U/L (38-126); Aspartate Aminotransferase 27 IU/L (14-36); BUN Creatinine Ratio 24.1 (6-22); Bilirubin Total 0.4 mg/dL (0.2-1.3); Blood Urea Nitrogen 20 mg/dL (7-17); Calcium 9.2 mg/dL (8.4-10.2); Carbon Dioxide 28 mmol/L (22-32); Chloride 104 mmol/L (98-107); Creatine Kinase 131 U/L (30-135); Estimated Glomerular Filt Rate > 60 mL/min (>60); Globulin 3.1 g/dL (1.7-4.1); Glucose 101 mg/dL (80-110); HEMOLYSIS 15 (0-50); Lipase 62 U/L (23-300); Magnesium 1.8 mg/dL (1.6-2.3); Potassium 3.5 mmol/L (3.4-5.1); Sodium 139 mmol/L (137-145); Total Protein 7.3 g/dL (6.3-8.2)
[2024-07-15 19:41] LABS: NT-proBNP (BNP-Adult 18+) 96 pg/mL (<125); Troponin I < 0.012 ng/mL (0.01-0.034)
[2024-07-15 21:07] VITALS: PULSE 73; RESP 20; O2SAT 99
[2024-07-15 21:30] VITALS: BP 145/77; PULSE 75; RESP 19
[2024-07-15 22:00] VITALS: BP 138/76; PULSE 74; RESP 26
[2024-07-15 22:30] VITALS: BP 136/77; PULSE 73; RESP 23; O2SAT 98
[2024-07-15 23:00] VITALS: BP 138/74; PULSE 75; RESP 18
--- NOTE | 2024-07-15 23:12 | ED_ITS ---
HPI - Arrhythmia/Palpitations General Chief Complaint: Arrhythmia/Palpitations Stated Complaint: irregular heartbeat Time Seen by Provider: 07/15/24 21:07 Source: patient Mode of arrival: Ambulatory History of Present Illness HPI narrative: 59-year-old woman presents with palpitations. History of prior methamphetamine use, mild reactive airway disease Noted she was lightheaded on Friday while mowing the lawn found to be hypotensive, 80/60, and home monitor heart rate reported 160. She spoke with her physician today who recommended ER visit she has not currently symptomatic. Related Data Previous Rx's Medication Instructions Recorded naloxone 4 mg/actuation nasal 4 mg intranasal Q2M PRN opioid 02/21/23 spray (Narcan) overdose #2 ea azithromycin 250 mg tablet See Rx Instructions PO .COMPLEX #6 01/16/24 tabs benzonatate 200 mg capsule 200 mg PO BID PRN cough #28 caps 01/16/24 fluticasone propionate 50 1 spray intranasal Q12H #16 grams 01/16/24 mcg/actuation nasal spray,suspension (Flonase Allergy Relief) Allergies Allergy/AdvReac Type Severity Reaction Status Date / Time sulfamethoxazole Allergy Rash Verified 07/15/24 18:46 [From Bactrim] trimethoprim [From Bactrim] Allergy Rash Verified 07/15/24 18:46 Review of Systems Review of Systems Narrative: Pertinent positive and negative findings as per HPI Patient History Social History Smoking Status: Current some day smoker alcohol intake: current Smoking Status: Current some day smoker tobacco type: cigarettes alcohol intake frequency: 0-2 drinks per day Substance Use Type: marijuana and methamphetamine Exam Initial Vital Signs Initial Vital Signs: Vital Signs Temperature 98.3 F 07/15/24 18:37 Pulse Rate 73 07/15/24 18:37 Respiratory Rate 16 07/15/24 18:37 Blood Pressure 153/90 H 07/15/24 18:37 Pulse Oximetry 97 07/15/24 18:37 Oxygen Delivery Method Room Air 07/15/24 18:37 General: Healthy appearing, in no acute distress. Able to give a complete and coherent history. Well-nourished well-developed HEENT: Moist mucous membranes, normal sclera with reactive pupils, Neck: No JVD, supple Respiratory: Lungs are clear to auscultation, no wheezing no rales no rhonchi. Full and symmetrical air movement Cardiac: Regular rate and rhythm no murmurs no bruits Abdomen: Soft, nontender, good bowel tones, no flank pain Skin: Warm and dry, no rashes Neurologic: Grossly neurologically intact with no obvious asymmetries or abnormalities Extremities: No trauma, well perfused Psych: Cooperative, appropriate insight and affect Course Orders Ordered: ED Orders 07/15/24 18:48 XR chest 1V Stat EKG-12 Lead Stat 07/15/24 19:10 Complete Blood Count AUTO DIFF Stat Comprehensive Metabolic Panel Stat Lipase Stat Magnesium Stat NT-proBNP (BNP-Adult 18+) Stat PTT Partial Thromboplastin Chet Stat Prothrombin Time INR Stat Troponin & CK Cardiac Panel Stat Vital Signs Vital signs: Vital Signs - 8 hr 07/15/24 18:37 07/15/24 21:07 07/15/24 21:30 Temperature 98.3 F Pulse Rate 73 73 Respiratory Rate 16 20 Blood Pressure 153/90 H 145/77 H Pulse Oximetry 97 99 Oxygen Delivery Method Room Air 07/15/24 21:30 07/15/24 22:00 07/15/24 22:00 Temperature Pulse Rate 75 74 Respiratory Rate 19 26 H Blood Pressure 138/76 Pulse Oximetry Oxygen Delivery Method 07/15/24 22:30 07/15/24 22:30 Temperature Pulse Rate 73 Respiratory Rate 23 Blood Pressure 136/77 Pulse Oximetry 98 Oxygen Delivery Method Room Air MDM - Arrhythmia/Palpitations Lab Data 07/15/24 19:10 07/15/24 19:10 Labs: Lab Results 07/15/24 Range/Units 19:10 WBC 6.7 (4.5-11.0) X10^3/uL RBC 4.46 (4.0-5.2) X10^6/uL Hgb 13.4 (12.0-16.0) g/dL Hct 39.9 (36-46) % MCV 89.4 (80-100) fL MCH 30.1 (26-34) PG MCHC 33.7 (30-36) % RDW 13.2 (11.6-14.8) % Plt Count 210 (150-400) X10^3/uL Neut % (Auto) 65.5 (50-75) % Lymph % (Auto) 22.9 L (25-40) % [place] % (Auto) 6.2 (3-14) % Eos % (Auto) 4.0 (2-4) % Baso % (Auto) 1.4 (0-2) % Neut # (Auto) 4400 (5414-2891) /uL Lymph # (Auto) 1500 (3532-0939) /uL [place] # (Auto) 400 (0-900) /uL Eos # (Auto) 300 (0-450) /uL Baso # (Auto) 100 (0-100) /uL PT 11.5 (9.4-12.5) SECONDS INR 1.0 (0.9-1.3) APTT 36 (25.1-36.5) SECONDS Sodium 139 (137-145) mmol/L Potassium 3.5 (3.4-5.1) mmol/L Chloride 104 (98-107) mmol/L Carbon Dioxide 28 (22-32) mmol/L BUN 20 H (7-17) mg/dL Creatinine 0.83 (0.52-1.04) mg/dL Estimated GFR > 60 (>60) mL/min BUN/Creatinine Ratio 24.1 H (6-22) Glucose 101 (80-110) mg/dL Calcium 9.2 (8.4-10.2) mg/dL Magnesium 1.8 (1.6-2.3) mg/dL Total Bilirubin 0.4 (0.2-1.3) mg/dL AST 27 (14-36) IU/L ALT 19 (<35) IU/L Alkaline Phosphatase 80 (38-126) U/L Total Creatine Kinase 131 (30-135) U/L Troponin I < 0.012 (0.01-0.034) ng/mL NT-Pro-B Natriuret Pep 96 (<125) pg/mL Total Protein 7.3 (6.3-8.2) g/dL Albumin 4.2 (3.5-5.0) g/dL Globulin 3.1 (1.7-4.1) g/dL Albumin/Globulin Ratio 1.4 (1.0-2.8) Lipase 62 (23-300) U/L MDM Narrative Medical decision making narrative: CC: Palpitations Complicating co-morbidities: Occasional methamphetamine use, postmenopausal Data collected from: patient Social determinants of health that may influence the patients condition:Recently required insurance, has not had access to care recently Differential considered: Sinus tach, atrial fibrillation, ventricular tachycardia, SVT Exam documented above, pertinent findings include: Exam is entirely benign Lab Test results independently reviewed as above. Pertinent findings: CBC is unremarkable Chemistries are reassuring with normal creatinine. Troponin is undetectable Independently reviewed EKG: EKG shows sinus rhythm at a rate of 74 with no acute ischemic change Imaging studies independently reviewed: Chest x-ray is unremarkable Discussion: 59-year-old woman with occasional episodes of palpitations most recently about a week ago while she was mowing the lawn. Self-resolved but heart rate was reportedly in the 160 range and slightly hypotensive. She now has insurance and has a 1st new visit appointment scheduled on July 27 with a provider in [place]. I have given her copies of labs EKGs and blood work done with today's visit to take to that visit. I have asked her to keep track of how frequently she has these rapid rhythms. I also suggested that if it happens again she call 911 a to see if we can capture the rhythm. Some point she may need additional cardiac monitoring. We did discuss the intermittent methamphetamine use and how it exacerbates symptoms. At this point she states that the most part the rhythm irregularity seems to be related to emotional stress and is not associated with chest pain or dyspnea at the time. Findings are reviewed, questions are answered she is safe for discharge Discharge Plan Departure Patient Disposition: Home Clinical Impression: Palpitations Instructions: DI for Palpitations Activity Restrictions/Additional Instructions: Thank you for coming in today Your workup today was very reassuring. We looked at blood work, I looked for heart attack, heart failure, infection, anemia. Your liver function and kidney function was reassuring. Your chest x-ray and EKG were equally reassuring. I have given you copies of all of these results to share with your new provider when you follow up in July. We did briefly talk about the racing heart. The next time this happens I would recommend that you call 911 so that they can see if we can obtain an EKG to figure out what rhythm you are actually in so we know how to better help. We also briefly discussed avoiding recreational drugs and discussed the fact that methamphetamine is directly cardiotoxic and is only going to make any baseline cardiac issues worse. If you find that you are getting worse or develop any new symptoms, please feel free to return to the emergency department for further evaluation. Prescriptions: No Action benzonatate 200 mg capsule 200 mg PO BID PRN (Reason: cough) Qty: 28 0RF fluticasone propionate [Flonase Allergy Relief] 50 mcg/actuation spray,suspension 1 spray intranasal Q12H Qty: 16 0RF Rx Instructions: administer into each nostril azithromycin 250 mg tablet See Rx Instructions PO .COMPLEX Qty: 6 0RF Rx Instructions: For 250 mg dose pack: take 500 mg today (day 1), then 250 mg for 4 days (days 2-5) PO naloxone [Narcan] 4 mg/actuation spray,non-aerosol 4 mg intranasal Q2M PRN (Reason: opioid overdose) Qty: 2 0RF Rx Instructions: spray 1 dose into ONE nostril; alternate nostrils w each dose until help arrives Referrals: Miscellaneous,Doctor, MD [Primary Care Provider] - Stand Alone Forms: Patient Portal/API
== END 2024-07-15 23:39 | disposition home or self-care (01) ==
PROVIDERS: Emergency Provider Emergency Medicine
DX: R00.2 Palpitations (principal); I95.9 Hypotension, unspecified; R07.9 Chest pain, unspecified
CPT/HCPCS: 36415; 71045; 80053; 82550; 83690; 83735; 83880; 84484; 85025; 85610; 85730; 93005; 99283; 99284